=== PATIENT | female | born 1945 | race Caucasian/White ===

== ENCOUNTER 2020-09-27 18:22 | Inpatient (IN) | payer MEDICARE ==
[~2020-09-27] VITALS: Ht 160 cm; Wt 100.2 kg
[2020-09-27 18:26] VITALS: BP 134/71
[2020-09-27 19:11] LABS: HEMATOCRIT 32.6 % (37.0-47.0); HEMOGLOBIN 11.2 gm/dL (12.0-15.0); MCH 28.9 pg (26.0-34.0); MCHC 34.3 g/dL (28.0-37.0); MCV 84.3 fL (80.0-100.0); MPV 7.4 fl. (7.2-11.1); NUCLEATED RBCS 0 /100WBC; PLATELET COUNT* 213 thou/uL (150-400); RBC 3.86 mil/uL (4.20-5.00); RDW-CV 14.6 % (10.5-14.5); WBC 18.6 thou/uL (4.0-11.0)
[2020-09-27 19:24] LABS: INR 2.2; PROTIME 21.9 Seconds (9.20-11.50)
[2020-09-27 19:33] LABS: CALCIUM 7.9 mg/dL (8.5-10.1); CREATININE 1.9 mg/dL (0.6-1.3); POTASSIUM 3.4 mmol/L (3.5-5.1)
[2020-09-27 19:38] LABS: ALBUMIN 3.1 g/dL (3.4-5.0); TOTAL BILIRUBIN 0.7 mg/dL (<0.1-1.0); TOTAL PROTEIN 6.7 g/dL (6.4-8.2)
[2020-09-27 19:59] LABS: ABSOLUTE MONOCYTES 0.2 thou/uL (0.0-1.2); ABSOLUTE NEUTROPHILS 18.4 thou/uL (1.6-8.1); PLATELET ESTIMATE ADEQUATE
[2020-09-27 20:59] LABS: URINE BILIRUBIN NEGATIVE (Negative); URINE BLOOD NEGATIVE (Negative); URINE CLARITY CLEAR; URINE GLUCOSE-RANDOM NEGATIVE (Negative); URINE KETONES NEGATIVE (Negative); URINE LEUKOCYTES-REFLEX TRACE (Negative); URINE NITRITE-REFLEX NEGATIVE (Negative); URINE PROTEIN NEGATIVE (Negative); URINE SPECIFIC GRAVITY 1.015 (1.005-1.030); URINE UROBILINOGEN 0.2 E.U./dl (0.2-1.0)
[2020-09-27 21:01] LABS: URINE COLOR DARK YELLOW
[2020-09-27 21:07] LABS: SQUAMOUS 0-3 Few /LPF (0-3); TRANSITIONAL EPITHEL CELL 0-3 Few /LPF (None Seen); URINE RBC 0-2 Rare /HPF (0-2); URINE WBC-REFLEX 6-15 Few /HPF (0-5); WBC CLUMPS Few (None Seen)
[2020-09-27 21:08] LABS: AMORPHOUS URATES Many /LPF (None Seen); COARSE GRANULAR CASTS 0-3 Few /LPF (None Seen); FINE GRANULAR CASTS 0-3 Few /LPF (None Seen); MUCUS 4-6 Moderate strn/LPF (None Seen)
[2020-09-27] MEDS ORDERED: VENTOLIN HFA 1818 GM INH (21:30)
[2020-09-27] MEDS ORDERED: SINGULAIR 10 MG10 M1 PO (21:31)
[2020-09-27] MEDS ORDERED: FLOVENT DISKU100 MCG INH (21:31)
[2020-09-27] MEDS ORDERED: OMEPRAZOLE40 MG PO (21:31)
[2020-09-27] MEDS ORDERED: LISINOPRIL-HCT1 EAC2 PO (21:32)
[2020-09-27] MEDS ORDERED: SENNA PLUS TAB1 EACH PO (21:32)
[2020-09-27] MEDS ORDERED: PROBIOTIC1 EAC7 PO (21:32)
[2020-09-27] MEDS ORDERED: ZETIA10 MG PO (21:33)
[2020-09-27] MEDS ORDERED: JANTOVEN6 MG PO (21:33)
[2020-09-27 22:56] VITALS: BP 91/46
[2020-09-28 02:56] VITALS: BP 90/48
--- NOTE | 2020-09-28 08:09 | NUR ---
PERMISSION GIVEN TO RN BY PT TO SPEAK WITH RENEE FONTANEZ, PT'S SISTER. UPDATE GIVEN. RENEE FONTANEZ CAN BE REACHED AT [phone].
--- NOTE | 2020-09-28 09:42 | EKG ---
[place] [address] ELECTROCARDIOGRAM REPORT Name: DONAL GILES Room: [place] [address] ADM IN [facility].#: [id number] Admission: 09/27/20 Attend Phys: Sergio Gray Discharge: Date of : 47 Date of Service: 09/27/20 1841 Report #: [id number] THIS REPORT FOR: //name// [facility] ED Test Date: 2020-09-27 Test Time: 18:41:10 Pat Name: DONAL GILES Department: Room: [facility] Gender: F Sql Dba: : 1945 Requested By: Jose Antonio Brown Order Number: [id number] MD: Hardeep Dowell Measurements Intervals [place] Rate: 111 P: 82 OK: 142 QRS: 27 QRSD: 81 T: 67 QT: 317 QTc: 431 Interpretive Statements Sinus tachycardia Abnormal R-wave progression, early transition No previous ECG available for comparison Electronically Signed On 09-28-2020 9:42:22 CDT by Hardeep Dowell [email or web address] <ELECTRONICALLY SIGNED> By: Hardeep Dowell MD, [facility] 09/28/20 0942 1841 1841 Hardeep Dowell MD, [facility] /EPI
--- NOTE | 2020-09-28 09:51 | NUR ---
SPOKE WITH DR. CAN IN PERSON REGARDING PT'S VS AND LEVOPHED GTT. DR. CAN PROVIDED VERBAL ORDER FOR STATUS CHANGE TO MED-SURG FROM ICU.
[2020-09-28 11:28] VITALS: BP 103/46
--- NOTE | 2020-09-28 11:39 | NUR ---
DR. CAN NOTIFIED VIA PAGING SERVICE REGARDING PT'S BLOOD PRESSURE
[2020-09-28 12:02] LABS: HEMATOCRIT 26.4 % (37.0-47.0); MCHC 34.6 g/dL (28.0-37.0); MCV 83.9 fL (80.0-100.0); MPV 7.1 fl. (7.2-11.1); NUCLEATED RBCS 0 /100WBC; PLATELET COUNT* 174 thou/uL (150-400); RBC 3.14 mil/uL (4.20-5.00); WBC 9.5 thou/uL (4.0-11.0)
[2020-09-28 12:15] LABS: HEMOGLOBIN 9.1 gm/dL (12.0-15.0)
[2020-09-28 12:16] LABS: ALBUMIN 2.2 g/dL (3.4-5.0); CALCIUM 7.2 mg/dL (8.5-10.1); CREATININE 1.4 mg/dL (0.6-1.3); POTASSIUM 3.5 mmol/L (3.5-5.1); TOTAL BILIRUBIN 0.3 mg/dL (<0.1-1.0); TOTAL PROTEIN 5.3 g/dL (6.4-8.2)
[2020-09-28 12:35] LABS: ABSOLUTE LYMPHOCYTES 0.8 thou/uL (0.8-5.3); ABSOLUTE MONOCYTES 0.1 thou/uL (0.0-1.2); ABSOLUTE NEUTROPHILS 8.6 thou/uL (1.6-8.1)
[2020-09-28 12:37] LABS: PLATELET ESTIMATE ADEQUATE
[2020-09-28 14:16] VITALS: BP 103/47
[2020-09-28 14:20] VITALS: BP 117/55
--- NOTE | 2020-09-28 16:15 | NUR ---
CM SPK WITH PT TO DICUSS D/C PLANNING. PT LIVES HOME WITH SPOUSE. PT IS INDEPENDENT WITH ADLS. PT DRVIES A VEHICLE AND IS ACTIVE. PT HAS HOME O2 AT 2L NOC THRU [facility]. PT HAS NEBULIZER. PT ISNT CURRENT W/HH. USED [facility] IS THE PAST, "FOR A SHORT TIME...FELT LIKE I DIDNT REALLY NEED IT." PT DENIES HX WITH SNF. CM TO CONT TO FOLLOW.
--- NOTE | 2020-09-28 17:57 | NUR ---
PATIENT ARRIVED FROM ER THIS AFTERNOON. PATIENT SETTLED TO ROOM, HISTORY, ASSESSMENT AND VITALS COMPLETED AND DOCUMENTED. PATIENT HAD COMPLAINTS OF HEADACHE, TYLENOL GIVEN. PATIENT HAS IVF/ABX INFUSING. PATIENT HAS GOOD APPETITE. PATIENT DENIES ANY NEEDS AT THIS TIME. CALL LIGHT WITHIN REACH.
[2020-09-28 23:48] VITALS: BP 88/44
[2020-09-29 04:39] VITALS: BP 111/64
[2020-09-29 08:27] VITALS: BP 106/60
[2020-09-29 11:10] LABS: ABSOLUTE BASOPHILS 0.1 thou/uL (0.0-0.2); ABSOLUTE LYMPHOCYTES 1.2 thou/uL (0.8-5.3); ABSOLUTE MONOCYTES 0.3 thou/uL (0.0-1.2); ABSOLUTE NEUTROPHILS 5.9 thou/uL (1.6-8.1); BASOPHILS 0.7 %; EOSINOPHILS 0.2 %; HEMATOCRIT 26.9 % (37.0-47.0); HEMOGLOBIN 9.2 gm/dL (12.0-15.0); LYMPHOCYTES 15.4 %; MCH 29.2 pg (26.0-34.0); MCHC 34.2 g/dL (28.0-37.0); MCV 85.5 fL (80.0-100.0); MONOCYTES 4.2 %; MPV 8.1 fl. (7.2-11.1); NUCLEATED RBCS 0 /100WBC; PLATELET COUNT* 174 thou/uL (150-400); POLYS 79.5 %; RBC 3.15 mil/uL (4.20-5.00); RDW-CV 15.2 % (10.5-14.5); WBC 7.5 thou/uL (4.0-11.0)
[2020-09-29 11:18] LABS: ALBUMIN 2.5 g/dL (3.4-5.0); CALCIUM 7.8 mg/dL (8.5-10.1); CREATININE 1.3 mg/dL (0.6-1.3); TOTAL BILIRUBIN 0.3 mg/dL (<0.1-1.0); TOTAL PROTEIN 5.2 g/dL (6.4-8.2)
[2020-09-29 12:00] VITALS: BP 99/94
[2020-09-29 16:00] VITALS: BP 127/61
--- NOTE | 2020-09-29 16:11 | NUR ---
PT UP TO BED SIDE RECLINER THIS SHIFT WITH MEALS- METAL FORGER'S ASSISTANT IN PLACE TRACING SR- RIGHT SUB CLAV CENTRAL LINE C/D/I AND SL, IVF D/C'D THIS SHIFT- IV IRON STARTED THIS SHIFT WITH 1ST DOSE GIVEN- IV ZOYSN D/C'D WITH CEFDINIR PO TO START THIS EVENING- PT DENIES ANY C/O PAIN/DISCOMFORT AT THIS TIME- CALL LIGHT AND PERSONAL BELONGINGS WITH IN REACH- HOURLY ROUNDS IN PLACE R/T SAFETY/NEEDS- ALL NEEDS MET AT THIS TIME
[2020-09-30] VITALS: BP 133/71
[2020-09-30 04:00] VITALS: BP 147/72
[2020-09-30 07:58] VITALS: BP 147/81
[2020-09-30 12:00] VITALS: BP 137/64
[2020-09-30 16:00] VITALS: BP 166/73
[2020-09-30] MEDS ORDERED: FERREX 150150 MG PO (16:52)
[2020-09-30] MEDS ORDERED: VITAMIN D325 MC1 PO (16:52)
[2020-09-30] MEDS ORDERED: CEFDINIR300 MG PO (16:52)
[2020-09-30 18:10] VITALS: BP 166/73
--- NOTE | 2020-09-30 18:27 | NUR ---
ORDERS NOTED FOR OKAY TO D/C HOME THIS SHIFT PER - RIGHT SUB Q CENTRAL LINE D/C'D PER THIS NURSE WITH PRESSURE APPLIED X5 MINS AND GAUZE/TRANSPARENT DREDSSING APPLIED; TIP NOTED TO BE INTACT- BEHAVIORAL HEALTH CASE MANAGER D/C'D WELL- D/C EDUCATION/TEACHING/NEEDED FOLLOW UP'S COMMUNICATED TO PT WITH VERBAL UNDERSTANDING NOTED PER PT- WRITTEN EDUCATION PROVIDED TO PT WITH ALL QUESTIONS AND CONCERNS ADDRESSED PRIOR TO D/C- BELONGINGS PACKED AND ACCOUNTED FOR PER PT AND - PT ESCORTED PER TECH VIA W/C WITH BELONGINGS TO VEHICLE/ AT SIDE AT 1830- NO PROBLMES TO NOTE AT TIME OF D/C
== END 2020-09-30 18:31 | disposition home or self-care (01) | DRG 871 ==
LOC: M.ERS 18:22 → M.TBA-ER 18:56 → M.2W 09-28 14:19
PROVIDERS: Family Medicine; Internal Medicine; ADMIT Internal Medicine; ATTEND Internal Medicine
PROC: B548ZZA Ultrasonography of Superior Vena Cava, Guidance (ICD-10-PCS; principal; 2020-09-27)
PROC: 02HV33Z Insertion of Infusion Device into Superior Vena Cava, Percutaneous Approach (ICD-10-PCS; principal; 2020-09-27)
DX: A41.9 Sepsis, unspecified organism (principal); N17.0 Acute kidney failure with tubular necrosis; N39.0 Urinary tract infection, site not specified; E44.0 Moderate protein-calorie malnutrition; D68.62 Lupus anticoagulant syndrome; R65.20 Severe sepsis without septic shock; Z20.822 Contact with and (suspected) exposure to COVID-19; Z86.711 Personal history of pulmonary embolism; Z88.1 Allergy status to other antibiotic agents; Z88.2 Allergy status to sulfonamides; Z68.39 Body mass index [BMI] 39.0-39.9, adult